=== PATIENT | female | born 1955 | race Caucasian/White ===

== ENCOUNTER 2021-11-15 14:56 | Observation (INO) ==
[2021-11-15 15:31] LABS: Basophils % 0.4 %; Eosinophils # 0.1 K/mcL (0.0-0.6); Eosinophils % 0.7 %; Hematocrit 44.8 % (35.3-44.9); Hemoglobin 14.7 g/dL (11.5-15.4); Immature Granulocytes % 0.3 % (0-4); Lymphocytes % 18.9 %; Mean Corpuscular HGB Conc 32.8 g/dL (31.6-35.5); Mean Corpuscular Hemoglobin 30.2 pg (28.0-33.3); Mean Platelet Volume 10.6 fL (9.4-12.4); Monocytes # 0.8 K/mcL (0.0-1.3); Monocytes % 7.2 %; Neutrophils # 7.8 K/mcL (1.6-8.9); Platelet Count 218 K/mcL (140-400); Red Blood Count 4.87 M/mcL (3.82-4.97); Red Cell Distribution Width 13.2 % (11.5-14.5); Segmented Neutrophils % 72.5 %; White Blood Count 10.7 K/mcL (4.3-11.1)
[2021-11-15 15:38] LABS: Prothrombin Time 11.5 Seconds (9.4-12.1)
[2021-11-15 15:41] LABS: Activated Partial Thrombo Time 31.7 Seconds (26.0-36.0)
[2021-11-15] MEDS ORDERED: Aspirin 325 MG TABLET PO ONE (15:43)
[2021-11-15] MEDS ORDERED: Nitroglycerin 0.4 MG TAB.SUBL SL PRN (15:43)
[2021-11-15 15:52] LABS: BUN/Creatinine Ratio 11 (6-26); Blood Urea Nitrogen 9 mg/dL (8-23); Calcium 9.2 mg/dL (8.6-10.3); Carbon Dioxide 24 mEq/L (23-29); Chloride 107 mEq/L (98-107); Glucose 96 mg/dL (70-105); Osmolality,Calculated 289 (280-300); Potassium 4.1 mEq/L (3.5-5.1); Sodium 140 mEq/L (136-145); eGFR For African Americans > 60 (> 60); eGFR For Non-African Americans > 60 (> 60)
[2021-11-15 15:53] LABS: Troponin I < 0.03 ng/mL (< 0.04)
[2021-11-15] MEDS ORDERED: Naloxone 0.4 MG/ML INJ IVP PRN (16:24)
[2021-11-15] MEDS ORDERED: Melatonin 3 MG TABLET PO PRN (16:24)
[2021-11-15] MEDS ORDERED: Acetaminophen 325 MG TABLET PO PRN (16:24)
[2021-11-15] MEDS ORDERED: Ondansetron ODT 4 MG TAB.RAPDIS SL PRN (16:24)
[2021-11-15] MEDS ORDERED: QUEtiapine Fumarate 300 MG TABLET PO ONE (21:14)
[2021-11-16 01:05] LABS: Basophils % 0.5 %; Eosinophils # 0.1 K/mcL (0.0-0.6); Eosinophils % 1.5 %; Hematocrit 41.2 % (35.3-44.9); Hemoglobin 13.3 g/dL (11.5-15.4); Immature Granulocytes % 0.3 % (0-4); Lymphocytes # 2.5 K/mcL (0.6-4.6); Lymphocytes % 28.6 %; Mean Corpuscular HGB Conc 32.3 g/dL (31.6-35.5); Mean Corpuscular Hemoglobin 29.9 pg (28.0-33.3); Mean Corpuscular Volume 92.6 fL (83.0-100.0); Mean Platelet Volume 10.8 fL (9.4-12.4); Monocytes # 0.7 K/mcL (0.0-1.3); Monocytes % 7.6 %; Neutrophils # 5.5 K/mcL (1.6-8.9); Platelet Count 192 K/mcL (140-400); Red Blood Count 4.45 M/mcL (3.82-4.97); Red Cell Distribution Width 13.1 % (11.5-14.5); Segmented Neutrophils % 61.5 %; White Blood Count 8.9 K/mcL (4.3-11.1)
[2021-11-16 01:12] LABS: INR 1.1; Prothrombin Time 11.8 Seconds (9.4-12.1)
[2021-11-16 01:25] LABS: BUN/Creatinine Ratio 17 (6-26); Blood Urea Nitrogen 16 mg/dL (8-23); Calcium 8.9 mg/dL (8.6-10.3); Carbon Dioxide 27 mEq/L (23-29); Chloride 106 mEq/L (98-107); Chol/HDL Ratio 3.7 (0-4.9); Cholesterol 162 mg/dL (< 200); Glucose 100 mg/dL (70-105); HDL Cholesterol 44 mg/dL (40-59); LDL Cholesterol,Calculated 62 mg/dL (< 100); Magnesium 2.1 mg/dL (1.6-2.6); Osmolality,Calculated 293 (280-300); Sodium 141 mEq/L (136-145); Triglycerides 279 mg/dL (< 150); eGFR For African Americans > 60 (> 60); eGFR For Non-African Americans > 60 (> 60)
[2021-11-16] MEDS ORDERED: Regadenoson 0.4 MG/5 ML SYRINGE IVP ONE (06:16)
[2021-11-16 11:45] VITALS: BP 135/79; PULSE 62; TEMP 97.9; O2SAT 100
[2021-11-16] MEDS ORDERED: Cariprazine Hcl [Vraylar] 4.5 MG Capsule PO SCH (13:15)
[2021-11-16] MEDS ORDERED: carBAMazepine 200 MG TABLET PO SCH (21:00)
[2021-11-16] MEDS ORDERED: QUEtiapine Fumarate 300 MG TABLET PO SCH (21:00)
[2021-11-17] MEDS ORDERED: Celecoxib 200 MG CAPSULE PO SCH (09:00)
== END 2021-11-16 14:03 | disposition home or self-care (01) ==
LOC: EMEROOARM 14:56 → 3BNU 14:56 → SUATTDRO 16:40 → 3BNU 17:28
PROVIDERS: ADMIT Pharmacist; ATTEND Internal Medicine